=== PATIENT | female | born 1975 | race Two or more races ===

== ENCOUNTER 2023-11-04 11:16 | Emergency (ER) | payer OTHER ==
[~2023-11-04] VITALS: Ht 157.5 cm; Wt 63.5 kg
[2023-11-04] MEDS ORDERED: DEXAMETHASONE SODIUM PHOSPHATE 4 MG/ML VIAL IM STA (13:03)
[2023-11-04 13:28] LABS: ERYTHROCYTE SEDIMENTATION RATE 9 mm/hr; HEMATOCRIT 35.3 % (36.0-45.00); HEMOGLOBIN 12.2 g/dL (12.0-15.00); MEAN CELL VOLUME 90.3 fL (80.00-100.00); MEAN CORPUSCULAR HEMOGLOBIN 31.3 pg (27.00-32.0); MEAN CORPUSCULAR HGB CONC 34.7 g/dl (32.0-36.0); PLATELET COUNT 242 K/uL (150-450); RED BLOOD COUNT 3.91 M/uL (4.00-6.00); RED CELL DISTRIBUTION WIDTH 13.3 % (11.5-14.5)
[2023-11-04 14:10] LABS: ALBUMIN 3.8 gm/dL (3.4-5.0); BILIRUBIN TOTAL 0.28 mg/dL (0.3-1.2); CALCIUM 9.1 mg/dL (8.5-10.1); CREATININE SERUM 0.77 mg/dL (0.55-1.02); GFR 80.01; GLOBULINA 3.8 G/DL (2.4-3.5); POTASSIUM 3.84 mEq/L (3.5-5.1); TOTAL PROTEIN 7.6 gm/dL (6.4-8.2)
[2023-11-04] MEDS ORDERED: AMOXICILLIN875 MG PO (14:59)
[2023-11-04] MEDS ORDERED: SULFAMETHOXAZO1 EACH PO (14:59)
[2023-11-04] MEDS ORDERED: PEPCID AC20 MG PO (15:01)
== END 2023-11-04 16:01 | disposition home or self-care (01) ==
LOC: ER 11:16
PROVIDERS: General Practice
DX: H00.014 Hordeolum externum left upper eyelid (principal); H02.844 Edema of left upper eyelid; E16.1 Other hypoglycemia

== ENCOUNTER → 2024-11-11 | Emergency (ER) | payer OTHER ==
[~2024-11-11] VITALS: Ht 157.5 cm; Wt 61.2 kg
[~2024-11-11] MED LIST: AMOXICILLIN875 MG PO; GUAIFENESIN/DEXTROMETHORPHAN 100MG/10ML BLIST.PACK PO ONE; HYDROCODONE/CHLORPHEN P-STIREX 5 ML ML PO STA; PEPCID AC20 MG PO; SULFAMETHOXAZO1 EACH PO
== END | disposition home or self-care (01) ==
LOC: ER 15:33
DX: J45.991 Cough variant asthma (principal)

== ENCOUNTER 2025-05-11 12:21 | Emergency (ER) | payer OTHER ==
[~2025-05-11] VITALS: Ht 157.5 cm; Wt 58.1 kg
[~2025-05-11 12:21] MED LIST changes: -GUAIFENESIN/DEXTROMETHORPHAN 100MG/10ML BLIST.PACK PO ONE; -HYDROCODONE/CHLORPHEN P-STIREX 5 ML ML PO STA
[2025-05-11 16:12] LABS: BASO % 0.6 % (0.1-1.2); EOS # 0.03 (0.04-0.54); EOS % 0.4 % (0.7-7.0); LYMPH # 1.73 (1.18-3.74); LYMPH % 21.3 % (19.3-53.1); MEAN PLATELET VOLUME 10.30 fl (9.4-12.4); MONO # 0.43 (0.24-0.82); MONO % 5.3 % (4.7-12.5); NEUT # 5.85 (1.56-6.13); NEUT % 72.0 % (34.0-71.1); RED CELL DISTRIBUTION WIDTH 13.7 % (11.6-14.4)
[2025-05-11 16:45] LABS: ALT/SGPT 19.0 U/L (12-78); AST/SGOT 15.0 U/L (15-37); BILIRUBIN TOTAL 0.22 mg/dL (0.3-1.2); BUN CREA RATIO 21.0 (7.0-25.0); CREATININE SERUM 0.77 mg/dL (0.55-1.02); GFR 79.67; GLOBULINA 3.6 G/DL (2.4-3.5); GLUCOSE FASTING 141.0 mg/dL (65-100); OSMOLALITY SERUM 285.0 MOSM/KG (275-295); TSH 0.511 uIU/mL (0.358-3.74)
== END 2025-05-11 17:23 | disposition home or self-care (01) ==
LOC: ER 12:21
PROVIDERS: Emergency Medicine
DX: R53.1 Weakness (principal); J45.909 Unspecified asthma, uncomplicated